=== PATIENT | female | born 1950 | race African-American/Black ===

== ENCOUNTER → 2017-08-11 | Outpatient (CLI) | payer MEDICARE, OTHER | LOC: CFH 13:02 | PROVIDERS: ATTEND Nurse Practitioner Family | DX: Z12.31 Encounter for screening mammogram for malignant neoplasm of breast (principal); Z80.3 Family history of malignant neoplasm of breast | CPT/HCPCS: 77063; G0202 ==

== ENCOUNTER → 2018-10-04 | Outpatient (CLI) | payer MEDICARE, OTHER | END | disposition home or self-care (01) | LOC: CFH 13:50 | PROVIDERS: ATTEND Nurse Practitioner Family | DX: Z12.31 Encounter for screening mammogram for malignant neoplasm of breast (principal) | CPT/HCPCS: 77063; 77067 ==

== ENCOUNTER 2019-03-10 21:32 | Inpatient (IN) | payer MEDICARE, OTHER ==
[~2019-03-10] VITALS: Ht 160 cm; Wt 127.6 kg
--- NOTE | 2019-03-10 21:44 | NUR ---
PT AND NOT CLEAR ON HISTORY, STATES SHE HAS SOME RESPIRTORY ISSUE BUT NOT SURE WHICH. STATES SHE HAS SOME HEART PROBLEMS BUT NOT SURE WHICH.
[2019-03-10] MEDS ORDERED: SODIUM CHLORIDE 0.9% 1,000ML IVBOLUS ONE (22:00)
[2019-03-10] MEDS ORDERED: SODIUM CHLORIDE FLUSH 10ML SYR IVF ONE (22:00)
[2019-03-10] MEDS ORDERED: ACETAMINOPHEN 500 MG TABLET PO ONE (22:00)
--- NOTE | 2019-03-10 22:02 | NUR ---
FIRST CONTACT WITH PT. PT PRESENTS C/O SORE THROAT X 2 DAYS. SEEN AT [facility]RGENT [facility]ARE YESTERDAY AND DX WITH STREP THROAT. NO CHANGE SINCE YESTERDAY BUT WANTED TO BE SEEN AGAIN. REPORTS FEVER, UNSURE WHAT DEGREE. REPORTS SOB. PT IS AWAKE BUT SLUGGISH IN RESPONSE. STATES "YEAH SHE'S BEEN DOING THAT" PT'S AOX4 HERE. RESPS EVEN AND UNLABORED. ALL MONITORS IN PLACE. CALL LIGHT WITHIN REACH. EDMD AT BEDSIDE TO EVALUATE AT THIS TIME.
[2019-03-10] MEDS ORDERED: ACETAMINOPHEN 500 MG TABLET ONE (22:07)
--- NOTE | 2019-03-10 22:26 | NUR ---
PT MEDICATED PER EMAR. PT TOLERATED WELL. NS INFUSING AT THIS TIME.
[2019-03-10 22:41] LABS: ALANINE AMINOTRANSFERASE 29 U/L (12-78); ALBUMIN 3.5 g/dL (3.4-5.0); ANION GAP 9 mmol/L (5-15); CALCIUM 9.4 mg/dL (8.5-10.1); CHLORIDE 106 mmol/L (98-107)
--- NOTE | 2019-03-10 22:45 | NUR ---
PT STRAIGHT CATH'D USING STERILE TECHNIQUE. THIS RN WALKED TO LAB.
[2019-03-10 22:46] LABS: ALKALINE PHOSPHATASE 82 U/L (45-117); BILIRUBIN,TOTAL 0.8 mg/dL (0.2-1.0); CREATININE 1.08 mg/dL (0.55-1.02); TOTAL PROTEIN 8.2 g/dL (6.4-8.2); TROPONIN I 0.034 ng/mL (0.000-0.045)
[2019-03-10 22:57] LABS: MEAN CORPUSCULAR HEMOGLOBIN 26.1 pg (27.0-34.8); MEAN CORPUSCULAR HGB CONC 31.3 g/dL (32.4-35.8); MEAN CORPUSCULAR VOLUME 83.6 fL (80-100); MEAN PLATELET VOLUME 9.4 fL (7.4-10.4); PLATELET COUNT 215 x10^3/uL (130-400); RED BLOOD COUNT 6.18 x10^6/uL (3.82-5.3); RED CELL DISTRIBUTION WIDTH 17.5 % (9.6-15.2)
[2019-03-10 22:58] LABS: BASOPHILS # (AUTO) 0.08 x10^3/uL (0-0.1); BASOPHILS % (AUTO) 1 % (0-1); EOSINOPHILS % (AUTO) 0 % (1-7); LYMPHOCYTES # (AUTO) 1.94 x10^3/uL (1-3.4); LYMPHOCYTES % (AUTO) 11 % (22-44); MD SCAN; MONOCYTES # (AUTO) 1.53 x10^3/uL (0.2-0.8); MONOCYTES % (AUTO) 9 % (2-9); NEUTROPHILS % (AUTO) 80 % (42-75)
[2019-03-10 23:04] LABS: MICROSCOPIC AUTO
[2019-03-10 23:05] LABS: CULTURE INDICATED? NO
[2019-03-10] MEDS ORDERED: CEFTRIAXONE PMX 1GM/50ML 50 ML ONE (23:20)
--- NOTE | 2019-03-10 23:29 | NUR ---
PT IN CT NOW.
[2019-03-10] MEDS ORDERED: CEFTRIAXONE PMX 1GM/50ML 50 ML IV ONE (23:30)
[2019-03-10] MEDS ORDERED: OMNIPAQUE 350 MG/ML, 100ML BOTTLE ONE (23:46)
--- NOTE | 2019-03-10 23:47 | NUR ---
ABX INFUSING AT THIS TIME. PT TOLERATED WELL.
[2019-03-10] MEDS ORDERED: ASPI-496 PO (23:48)
[2019-03-10] MEDS ORDERED: AMLO10TA4 PO (23:49)
[2019-03-10] MEDS ORDERED: OMEG-130 PO (23:49)
[2019-03-10] MEDS ORDERED: LOSA50TA14 PO (23:49)
[2019-03-10] MEDS ORDERED: LEVO75TA5 PO (23:50)
[2019-03-11] MEDS ORDERED: AZITHROMYCIN 500 MG in SODIUM CHLORIDE 0.9% 250 ML IV ONE
--- NOTE | 2019-03-11 00:32 | NUR ---
REPORT GIVEN TO SMILEY SON. ALL QUESTIONS ANSWERED.
[2019-03-11 01:03] VITALS: BP 136/79
[2019-03-11 01:15] VITALS: BP 136/79
[2019-03-11] MEDS ORDERED: VANCOMYCIN PER PHARMACY MC PRN (04:30)
[2019-03-11] MEDS ORDERED: ZOSYN PER PHARMACY MC PRN (04:30)
[2019-03-11] MEDS ORDERED: ONDANSETRON 2MG/ML, 2ML IVPush PRN (04:30)
[2019-03-11] MEDS ORDERED: PHARMACOKINETIC MONITORING MC PRN (05:00)
[2019-03-11] MEDS: ACETAMINOPHEN 325 MG TABLET PO PRN ×4 (05:04→22:02)
[2019-03-11] MEDS: LEVOTHYROXINE 75 MCG TABLET PO SCH (05:05)
[2019-03-11] MEDS: HEPARIN 5,000 UNITS/ML, 1ML SQ SCH ×3 (05:05→21:07)
[2019-03-11] MEDS ORDERED: VANCOMYCIN 2,500 MG in SODIUM CHLORIDE 0.9% 500 ML IV ONE (05:30)
[2019-03-11] MEDS: PIPERACILLIN/TAZO/PMX 2.25GM 50 ML IVPB SCH ×2 (05:32→11:38)
[2019-03-11 07:10] VITALS: BP 115/65
[2019-03-11] MEDS ORDERED: AMIT10TA PO (08:11)
[2019-03-11] MEDS: LOSARTAN 50MG TABLET PO SCH (08:18)
[2019-03-11] MEDS: ASPIRIN 81 MG TABLET EC PO SCH ×2 (08:18→08:21)
[2019-03-11] MEDS: AMLODIPINE 10 MG TAB PO SCH (08:21)
[2019-03-11] MEDS ORDERED: HYDR25TA6 PO (10:09)
[2019-03-11 12:43] VITALS: BP 139/81
[2019-03-11] MEDS ORDERED: ALBU8.5H8 INH (13:58)
[2019-03-11] MEDS ORDERED: MOME13HF2 INH (13:58)
[2019-03-11] MEDS: LACTATED RINGERS 1,000 ML IV SCH (17:49)
[2019-03-11] MEDS ORDERED: ALBUTEROL SULFATE 2.5 MG/3 ML NPPB PRN (18:00)
[2019-03-11] MEDS: PIPERACILLIN/TAZO/PMX 3.375GM 50 ML IVPB SCH (18:16)
[2019-03-11] MEDS: BUDESONIDE 0.5 MG/2 ML INHA NPPB SCH (19:50)
[2019-03-11] MEDS: ALBUTEROL SULFATE 2.5 MG/3 ML NPPB SCH (19:50)
[2019-03-11 20:49] VITALS: BP 105/72
[2019-03-12] MEDS: PIPERACILLIN/TAZO/PMX 3.375GM 50 ML IVPB SCH ×4 (00:16→22:38)
[2019-03-12 02:29] VITALS: BP 111/71
[2019-03-12] MEDS: ALBUTEROL SULFATE 2.5 MG/3 ML NPPB SCH ×3 (03:00→12:00)
[2019-03-12] MEDS: HEPARIN 5,000 UNITS/ML, 1ML SQ SCH ×3 (05:00→22:37)
[2019-03-12] MEDS: LACTATED RINGERS 1,000 ML IV SCH ×2 (05:00→22:39)
[2019-03-12] MEDS: ACETAMINOPHEN 325 MG TABLET PO PRN ×2 (05:38→23:14)
[2019-03-12] MEDS: LEVOTHYROXINE 75 MCG TABLET PO SCH (05:38)
[2019-03-12] MEDS: VANCOMYCIN 2,000 MG in SODIUM CHLORIDE 0.9% 500 ML IV SCH (06:17)
[2019-03-12 07:05] VITALS: BP 126/72
[2019-03-12 08:44] LABS: MEAN CORPUSCULAR HEMOGLOBIN 26.7 pg (27.0-34.8); MEAN CORPUSCULAR HGB CONC 31.6 g/dL (32.4-35.8); MEAN CORPUSCULAR VOLUME 84.6 fL (80-100); MEAN PLATELET VOLUME 9.8 fL (7.4-10.4); PLATELET COUNT 205 x10^3/uL (130-400); RED CELL DISTRIBUTION WIDTH 17.7 % (9.6-15.2)
[2019-03-12] MEDS: LOSARTAN 50MG TABLET PO SCH (08:53)
[2019-03-12] MEDS: ASPIRIN 81 MG TABLET EC PO SCH (08:53)
[2019-03-12] MEDS: AMLODIPINE 10 MG TAB PO SCH (08:54)
[2019-03-12 08:55] LABS: ANION GAP 6 mmol/L (5-15); CALCIUM 8.8 mg/dL (8.5-10.1); CHLORIDE 110 mmol/L (98-107)
[2019-03-12 08:57] LABS: CREATININE 0.93 mg/dL (0.55-1.02)
[2019-03-12] MEDS: BUDESONIDE 0.5 MG/2 ML INHA NPPB SCH (09:00)
[2019-03-12 09:08] LABS: BASOPHILS # (AUTO) 0.03 x10^3/uL (0-0.1); BASOPHILS % (AUTO) 0 % (0-1); EOSINOPHILS # (AUTO) 0.07 x10^3/uL (0-0.4); EOSINOPHILS % (AUTO) 0 % (1-7); LYMPHOCYTES # (AUTO) 2.82 x10^3/uL (1-3.4); LYMPHOCYTES % (AUTO) 15 % (22-44); MD SCAN; MONOCYTES # (AUTO) 1.62 x10^3/uL (0.2-0.8); MONOCYTES % (AUTO) 9 % (2-9); NEUTROPHILS # (AUTO) 13.96 x10^3/uL (1.8-6.8); NEUTROPHILS % (AUTO) 76 % (42-75)
[2019-03-12 09:38] LABS: HCT (SEDRATE) 45.6 % (34.6-47.8)
[2019-03-12 12:10] VITALS: BP 123/83
[2019-03-12 20:00] VITALS: BP 130/77
[2019-03-12] MEDS: BENZONATATE 100 MG CAPSULE PO SCH (21:19)
[2019-03-12] MEDS ORDERED: OMNIPAQUE 350 MG/ML, 100ML BOTTLE ONE (22:14)
[2019-03-12] MEDS: AMITRIPTYLINE 10 MG TABLET PO SCH (22:37)
[2019-03-13 02:00] VITALS: BP 154/88
[2019-03-13] MEDS: PIPERACILLIN/TAZO/PMX 3.375GM 50 ML IVPB SCH ×4 (05:00→22:14)
[2019-03-13] MEDS: VANCOMYCIN 2,000 MG in SODIUM CHLORIDE 0.9% 500 ML IV SCH (06:12)
[2019-03-13] MEDS: HEPARIN 5,000 UNITS/ML, 1ML SQ SCH ×3 (06:12→22:14)
[2019-03-13] MEDS: LEVOTHYROXINE 75 MCG TABLET PO SCH (06:12)
[2019-03-13 06:47] VITALS: BP 119/70
[2019-03-13] MEDS: ASPIRIN 81 MG TABLET EC PO SCH (08:34)
[2019-03-13] MEDS: AMLODIPINE 10 MG TAB PO SCH (08:34)
[2019-03-13] MEDS: LOSARTAN 50MG TABLET PO SCH (08:35)
[2019-03-13] MEDS: BENZONATATE 100 MG CAPSULE PO SCH ×3 (08:35→22:15)
[2019-03-13 08:45] LABS: BASOPHILS # (AUTO) 0.05 x10^3/uL (0-0.1); BASOPHILS % (AUTO) 0 % (0-1); EOSINOPHILS # (AUTO) 0.22 x10^3/uL (0-0.4); EOSINOPHILS % (AUTO) 2 % (1-7); LYMPHOCYTES # (AUTO) 2.45 x10^3/uL (1-3.4); LYMPHOCYTES % (AUTO) 22 % (22-44); MD NO; MEAN CORPUSCULAR HEMOGLOBIN 26.3 pg (27.0-34.8); MEAN CORPUSCULAR HGB CONC 31.3 g/dL (32.4-35.8); MEAN PLATELET VOLUME 9.7 fL (7.4-10.4); MONOCYTES # (AUTO) 0.99 x10^3/uL (0.2-0.8); MONOCYTES % (AUTO) 9 % (2-9); NEUTROPHILS # (AUTO) 7.42 x10^3/uL (1.8-6.8); NEUTROPHILS % (AUTO) 67 % (42-75); PLATELET COUNT 245 x10^3/uL (130-400); RED BLOOD COUNT 5.35 x10^6/uL (3.82-5.3); RED CELL DISTRIBUTION WIDTH 17.8 % (9.6-15.2)
[2019-03-13 08:49] LABS: ANION GAP 5 mmol/L (5-15); CHLORIDE 109 mmol/L (98-107); CREATININE 0.92 mg/dL (0.55-1.02)
[2019-03-13 12:25] VITALS: BP 120/72
[2019-03-13] MEDS: ACETAMINOPHEN 325 MG TABLET PO PRN (16:34)
[2019-03-13 19:56] VITALS: BP 125/77
[2019-03-13] MEDS: AMITRIPTYLINE 10 MG TABLET PO SCH (22:15)
[2019-03-14 01:57] VITALS: BP 146/85
[2019-03-14] MEDS: PIPERACILLIN/TAZO/PMX 3.375GM 50 ML IVPB SCH ×4 (04:44→22:00)
[2019-03-14 05:47] LABS: BASOPHILS # (AUTO) 0.05 x10^3/uL (0-0.1); BASOPHILS % (AUTO) 1 % (0-1); EOSINOPHILS # (AUTO) 0.21 x10^3/uL (0-0.4); EOSINOPHILS % (AUTO) 2 % (1-7); LYMPHOCYTES # (AUTO) 2.09 x10^3/uL (1-3.4); LYMPHOCYTES % (AUTO) 23 % (22-44); MD NO; MEAN CORPUSCULAR HEMOGLOBIN 26.5 pg (27.0-34.8); MEAN CORPUSCULAR HGB CONC 31.3 g/dL (32.4-35.8); MEAN CORPUSCULAR VOLUME 84.6 fL (80-100); MEAN PLATELET VOLUME 9.7 fL (7.4-10.4); MONOCYTES # (AUTO) 0.72 x10^3/uL (0.2-0.8); MONOCYTES % (AUTO) 8 % (2-9); NEUTROPHILS # (AUTO) 5.95 x10^3/uL (1.8-6.8); NEUTROPHILS % (AUTO) 66 % (42-75); PLATELET COUNT 158 x10^3/uL (130-400); RED BLOOD COUNT 5.42 x10^6/uL (3.82-5.3); RED CELL DISTRIBUTION WIDTH 17.5 % (9.6-15.2)
[2019-03-14] MEDS: VANCOMYCIN 2,000 MG in SODIUM CHLORIDE 0.9% 500 ML IV SCH (05:52)
[2019-03-14] MEDS: HEPARIN 5,000 UNITS/ML, 1ML SQ SCH ×3 (05:52→22:00)
[2019-03-14] MEDS: LEVOTHYROXINE 75 MCG TABLET PO SCH (05:52)
[2019-03-14 06:42] LABS: ANION GAP 7 mmol/L (5-15); CHLORIDE 109 mmol/L (98-107); CREATININE 0.76 mg/dL (0.55-1.02)
[2019-03-14 06:52] LABS: VANCOMYCIN,TROUGH 27.9 mcg/mL (5.0-10.0)
[2019-03-14 07:26] VITALS: BP 162/85
[2019-03-14] MEDS: ASPIRIN 81 MG TABLET EC PO SCH (08:12)
[2019-03-14] MEDS: BENZONATATE 100 MG CAPSULE PO SCH ×3 (08:12→21:59)
[2019-03-14] MEDS: AMLODIPINE 10 MG TAB PO SCH (08:12)
[2019-03-14] MEDS: POTASSIUM CHLORIDE 20 MEQ TAB.ER.PRT PO SCH ×2 (08:12→12:23)
[2019-03-14] MEDS: LOSARTAN 50MG TABLET PO SCH (08:13)
[2019-03-14 13:37] VITALS: BP 123/77
[2019-03-14 19:33] VITALS: BP 163/85
[2019-03-14] MEDS: AMITRIPTYLINE 10 MG TABLET PO SCH (20:58)
[2019-03-14] MEDS ORDERED: ALBUTEROL SULFATE 2.5 MG/3 ML ONE (23:49)
[2019-03-15] MEDS ORDERED: ALBUTEROL SULFATE 2.5 MG/3 ML NPPB PRN
[2019-03-15 02:52] VITALS: BP 162/88
[2019-03-15] MEDS: PIPERACILLIN/TAZO/PMX 3.375GM 50 ML IVPB SCH ×4 (04:11→22:36)
[2019-03-15 05:26] LABS: BASOPHILS # (AUTO) 0.04 x10^3/uL (0-0.1); BASOPHILS % (AUTO) 0 % (0-1); EOSINOPHILS # (AUTO) 0.18 x10^3/uL (0-0.4); EOSINOPHILS % (AUTO) 2 % (1-7); LYMPHOCYTES % (AUTO) 27 % (22-44); MD NO; MEAN CORPUSCULAR HEMOGLOBIN 26.5 pg (27.0-34.8); MEAN CORPUSCULAR HGB CONC 31.8 g/dL (32.4-35.8); MEAN CORPUSCULAR VOLUME 83.3 fL (80-100); MEAN PLATELET VOLUME 9.2 fL (7.4-10.4); MONOCYTES # (AUTO) 0.79 x10^3/uL (0.2-0.8); MONOCYTES % (AUTO) 7 % (2-9); NEUTROPHILS # (AUTO) 7.29 x10^3/uL (1.8-6.8); NEUTROPHILS % (AUTO) 65 % (42-75); PLATELET COUNT 276 x10^3/uL (130-400); RED BLOOD COUNT 5.42 x10^6/uL (3.82-5.3); RED CELL DISTRIBUTION WIDTH 17.6 % (9.6-15.2)
[2019-03-15 05:29] LABS: ANION GAP 8 mmol/L (5-15); CALCIUM 9.3 mg/dL (8.5-10.1); CHLORIDE 109 mmol/L (98-107)
[2019-03-15 05:33] LABS: CREATININE 0.82 mg/dL (0.55-1.02); VANCOMYCIN,TROUGH 8.8 mcg/mL (5.0-10.0)
[2019-03-15] MEDS: HEPARIN 5,000 UNITS/ML, 1ML SQ SCH ×3 (05:55→21:33)
[2019-03-15] MEDS: VANCOMYCIN 2,000 MG in SODIUM CHLORIDE 0.9% 500 ML IV SCH (05:55)
[2019-03-15] MEDS: LEVOTHYROXINE 75 MCG TABLET PO SCH (05:55)
[2019-03-15 07:18] VITALS: BP 131/73
[2019-03-15] MEDS: BENZONATATE 100 MG CAPSULE PO SCH ×3 (09:03→21:33)
[2019-03-15] MEDS: ASPIRIN 81 MG TABLET EC PO SCH (09:03)
[2019-03-15] MEDS: AMLODIPINE 10 MG TAB PO SCH (09:03)
[2019-03-15] MEDS: LOSARTAN 50MG TABLET PO SCH (09:03)
[2019-03-15 13:34] VITALS: BP 154/85
[2019-03-15 19:20] VITALS: BP 159/88
[2019-03-15] MEDS: AMITRIPTYLINE 10 MG TABLET PO SCH (21:33)
[2019-03-16] MEDS ORDERED: VANCOMYCIN 2,000 MG in SODIUM CHLORIDE 0.9% 500 ML IV SCH
[2019-03-16 00:41] VITALS: BP 145/87
[2019-03-16 04:41] LABS: MEAN CORPUSCULAR HEMOGLOBIN 27.1 pg (27.0-34.8); MEAN CORPUSCULAR HGB CONC 31.7 g/dL (32.4-35.8); MEAN CORPUSCULAR VOLUME 85.5 fL (80-100); MEAN PLATELET VOLUME 9.1 fL (7.4-10.4); PLATELET COUNT 301 x10^3/uL (130-400); RED BLOOD COUNT 5.57 x10^6/uL (3.82-5.3); RED CELL DISTRIBUTION WIDTH 17.3 % (9.6-15.2)
[2019-03-16 05:01] LABS: MD YES
[2019-03-16] MEDS: PIPERACILLIN/TAZO/PMX 3.375GM 50 ML IVPB SCH ×4 (05:01→18:18)
[2019-03-16] MEDS: HEPARIN 5,000 UNITS/ML, 1ML SQ SCH ×3 (05:02→21:45)
[2019-03-16] MEDS: ACETAMINOPHEN 325 MG TABLET PO PRN (05:02)
[2019-03-16] MEDS: LEVOTHYROXINE 75 MCG TABLET PO SCH (05:02)
[2019-03-16 05:40] LABS: BAND#(MANUAL) 0.28 x10^3/uL; BANDS%(MANUAL) 2 % (0-7); EOS#(MANUAL) 0.42 x10^3/uL (0.0-0.4); EOS% (MANUAL) 3 % (1-7); LYMPH#(MANUAL) 3.61 x10^3/uL (1-3.4); LYMPHS% (MANUAL) 26 % (22-44); MONOS#(MANUAL) 0.28 x10^3/uL (0.3-2.7); MONOS% (MANUAL) 2 % (2-9); SEG#(MANUAL) 9.31 x10^3/uL (1.8-6.8); SEGS% (MANUAL) 67 % (42-75)
[2019-03-16 05:41] LABS: <PLATELET ESTIMATE> ADEQUATE; <PLT MORPHOLOGY> NORMAL PLT MORPH; ANISOCYTOSIS 1+
[2019-03-16 07:56] VITALS: BP 149/75
[2019-03-16] MEDS: BENZONATATE 100 MG CAPSULE PO SCH ×3 (09:09→21:45)
[2019-03-16] MEDS: ASPIRIN 81 MG TABLET EC PO SCH (09:10)
[2019-03-16] MEDS: LOSARTAN 50MG TABLET PO SCH (09:10)
[2019-03-16] MEDS: AMLODIPINE 10 MG TAB PO SCH (09:10)
[2019-03-16 09:15] LABS: HCT (SEDRATE) 46.7 % (34.6-47.8)
[2019-03-16 12:49] VITALS: BP 150/82
[2019-03-16 18:52] VITALS: BP 112/62
[2019-03-16] MEDS: AMITRIPTYLINE 10 MG TABLET PO SCH (21:45)
[2019-03-17] MEDS: AMITRIPTYLINE 10 MG TABLET PO SCH (00:18)
[2019-03-17] MEDS: PIPERACILLIN/TAZO/PMX 3.375GM 50 ML IVPB SCH ×3 (00:18→13:18)
[2019-03-17 00:33] VITALS: BP 147/84
[2019-03-17 05:10] LABS: ANION GAP 8 mmol/L (5-15); CALCIUM 9.4 mg/dL (8.5-10.1); CHLORIDE 110 mmol/L (98-107); CREATININE 0.97 mg/dL (0.55-1.02)
[2019-03-17 05:19] LABS: MEAN CORPUSCULAR HEMOGLOBIN 26.5 pg (27.0-34.8); MEAN CORPUSCULAR HGB CONC 31.6 g/dL (32.4-35.8); MEAN CORPUSCULAR VOLUME 83.8 fL (80-100); MEAN PLATELET VOLUME 9.1 fL (7.4-10.4); PLATELET COUNT 307 x10^3/uL (130-400); RED CELL DISTRIBUTION WIDTH 17.7 % (9.6-15.2)
[2019-03-17] MEDS: HEPARIN 5,000 UNITS/ML, 1ML SQ SCH ×2 (06:19→14:00)
[2019-03-17] MEDS: LEVOTHYROXINE 75 MCG TABLET PO SCH (06:19)
[2019-03-17 06:29] LABS: BASOPHILS % (AUTO) 1 % (0-1); EOSINOPHILS % (AUTO) 3 % (1-7); LYMPHOCYTES # (AUTO) 3.42 x10^3/uL (1-3.4); LYMPHOCYTES % (AUTO) 26 % (22-44); MD SCAN; MONOCYTES # (AUTO) 0.81 x10^3/uL (0.2-0.8); MONOCYTES % (AUTO) 6 % (2-9); NEUTROPHILS % (AUTO) 64 % (42-75)
[2019-03-17 07:30] VITALS: BP 129/66
[2019-03-17] MEDS: BENZONATATE 100 MG CAPSULE PO SCH (09:21)
[2019-03-17] MEDS: ASPIRIN 81 MG TABLET EC PO SCH (09:22)
[2019-03-17] MEDS: AMLODIPINE 10 MG TAB PO SCH (09:22)
[2019-03-17] MEDS: LOSARTAN 50MG TABLET PO SCH (09:22)
[2019-03-17] MEDS ORDERED: SODIUM CHLORIDE 0.9% 1,000 ML IV SCH (09:30)
[2019-03-17] MEDS ORDERED: OMNIPAQUE 350 MG/ML, 100ML BOTTLE ONE (10:05)
[2019-03-17 13:41] VITALS: BP 150/76
[2019-03-17] MEDS ORDERED: DOXY100C15 PO (13:59)
[2019-03-17] MEDS ORDERED: CEFD300C37 PO (13:59)
== END 2019-03-17 15:40 | disposition home or self-care (01) | DRG 871 ==
LOC: ED 21:58 → EDIP 03-11 00:01 → 4WST 03-11 00:52 → DCLOUNGE 03-17 15:27
PROVIDERS: ADMIT Family Medicine; ATTEND Family Medicine
PROC: 0T9B70Z Drainage of Bladder with Drainage Device, Via Natural or Artificial Opening (ICD-10-PCS; principal; 2019-03-11)
PROC: 5A09357 Assistance with Respiratory Ventilation, Less than 24 Consecutive Hours, Continuous Positive Airway Pressure (ICD-10-PCS; 2019-03-12)
PROC: 5A09357 Assistance with Respiratory Ventilation, Less than 24 Consecutive Hours, Continuous Positive Airway Pressure (ICD-10-PCS; 2019-03-14)
PROC: 5A09357 Assistance with Respiratory Ventilation, Less than 24 Consecutive Hours, Continuous Positive Airway Pressure (ICD-10-PCS; 2019-03-15)
PROC: 5A09357 Assistance with Respiratory Ventilation, Less than 24 Consecutive Hours, Continuous Positive Airway Pressure (ICD-10-PCS; 2019-03-16)
PROC: 5A09357 Assistance with Respiratory Ventilation, Less than 24 Consecutive Hours, Continuous Positive Airway Pressure (ICD-10-PCS; 2019-03-17)
DX: A41.9 Sepsis, unspecified organism (principal); J96.01 Acute respiratory failure with hypoxia; J15.9 Unspecified bacterial pneumonia; Z68.42 Body mass index [BMI] 45.0-49.9, adult; E03.9 Hypothyroidism, unspecified; E66.01 Morbid (severe) obesity due to excess calories; Z71.3 Dietary counseling and surveillance; E87.6 Hypokalemia; G47.33 Obstructive sleep apnea (adult) (pediatric); I10 Essential (primary) hypertension; J02.0 Streptococcal pharyngitis; Z88.5 Allergy status to narcotic agent; J45.909 Unspecified asthma, uncomplicated; R65.20 Severe sepsis without septic shock; Z90.49 Acquired absence of other specified parts of digestive tract
CPT/HCPCS: 36415; 36600; 70491; 71045; 71275; 74177; 76536; 80048; 80053; 80202; 81001; 82803; 83605; 83735; 84145; 84443; 84484; 85025; 85651; 86140; 87040; 87081; 93005; 93308; 94640; 96361; 96365; 99291; G0378; J0456; J0696; J1644; J2543; J3370; J7613; J7626; Q9967; J7030; J7040; J7050; J7120

== ENCOUNTER → 2019-07-23 | Outpatient (CLI) | payer MEDICARE, OTHER ==
[~2019-07-23] MED LIST: ALBU8.5H8 INH; AMIT10TA PO; AMLO10TA4 PO; ASPI-496 PO; CEFD300C37 PO; DOXY100C15 PO; HYDR25TA6 PO; LEVO75TA5 PO; LOSA50TA14 PO; MOME13HF2 INH; OMEG-130 PO
== END | disposition home or self-care (01) ==
LOC: CVU 13:33
PROVIDERS: ATTEND Nurse Practitioner Family
DX: I35.8 Other nonrheumatic aortic valve disorders (principal); I10 Essential (primary) hypertension
CPT/HCPCS: 93306

== ENCOUNTER → 2019-09-10 | Outpatient (CLI) | payer MEDICARE, OTHER | END | disposition home or self-care (01) | LOC: CVU 12:48 | PROVIDERS: ATTEND Nurse Practitioner Family | DX: I10 Essential (primary) hypertension (principal); E03.9 Hypothyroidism, unspecified; E66.01 Morbid (severe) obesity due to excess calories; K21.9 Gastro-esophageal reflux disease without esophagitis; E78.5 Hyperlipidemia, unspecified; G47.33 Obstructive sleep apnea (adult) (pediatric); I89.0 Lymphedema, not elsewhere classified; R60.0 Localized edema | CPT/HCPCS: 93922; 93970 ==

== ENCOUNTER → 2021-03-20 | Outpatient (CLI) | payer MEDICARE, OTHER ==
[~2021-03-20] MED LIST changes: +DOXY-246 PO; -DOXY100C15 PO
== END | disposition home or self-care (01) ==
LOC: CFH 11:59
PROVIDERS: ATTEND Nurse Practitioner Family
DX: Z12.31 Encounter for screening mammogram for malignant neoplasm of breast (principal)
CPT/HCPCS: 77063; 77067